=== PATIENT | female | born 1990 | race African-American/Black ===

== ENCOUNTER 2019-08-31 09:53 | Emergency (ER) | payer OTHER ==
[~2019-08-31] VITALS: Ht 162.6 cm; Wt 117.9 kg
[~2019-08-31 09:53] MED LIST: APAP500 PO
[2019-08-31] MEDS ORDERED: KEFLEX500 M1 PO (11:30)
[2019-08-31 11:43] VITALS: BP 132/71
== END 2019-08-31 11:44 | disposition home or self-care (01) ==
LOC: ER 09:53
DX: S31.139A Puncture wound of abdominal wall without foreign body, unspecified quadrant without penetration into peritoneal cavity, initial encounter (principal); G43.909 Migraine, unspecified, not intractable, without status migrainosus; W27.8XXA Contact with other nonpowered hand tool, initial encounter; Y93.89 Activity, other specified; Y92.89 Other specified places as the place of occurrence of the external cause; Y99.8 Other external cause status

== ENCOUNTER 2019-11-25 19:19 | Emergency (ER) | payer OTHER ==
[~2019-11-25] VITALS: Ht 162.6 cm; Wt 76.7 kg
[~2019-11-25 19:19] MED LIST changes: +KEFLEX500 M1 PO
[2019-11-25] MEDS ORDERED: MOBIC15 MG PO (21:11)
[2019-11-25 21:21] VITALS: BP 134/68
== END 2019-11-25 21:20 | disposition home or self-care (01) ==
LOC: ER 19:19
DX: S00.03XA Contusion of scalp, initial encounter (principal); R07.81 Pleurodynia; R07.89 Other chest pain; R42 Dizziness and giddiness; G43.909 Migraine, unspecified, not intractable, without status migrainosus; Y08.89XA Assault by other specified means, initial encounter; Y93.89 Activity, other specified; Y92.89 Other specified places as the place of occurrence of the external cause; Y99.8 Other external cause status

== ENCOUNTER 2021-04-07 | Emergency (ER) | payer OTHER ==
[~2021-04-07] VITALS: Ht 162.6 cm; Wt 122.5 kg
[~2021-04-07] MED LIST changes: +MOBIC15 MG PO
[2021-04-07 01:00] LABS: URINE BILIRUBIN NEGATIVE (Negative); URINE BLOOD 3+ (Negative); URINE CLARITY CLEAR; URINE COLOR YELLOW; URINE GLUCOSE-RANDOM* NEGATIVE (Negative); URINE KETONES NEGATIVE (Negative); URINE PROTEIN (DIPSTICK) NEGATIVE (Negative)
[2021-04-07 01:01] LABS: URINE LEUKOCYTES-REFLEX 1+ (Negative); URINE NITRITE-REFLEX POSITIVE (Negative)
[2021-04-07 01:16] LABS: BACTERIA-REFLEX >30 Many /HPF (None Seen); CASTS None Seen /LPF (None Seen); CRYSTALS None Seen /LPF (None Seen); MUCUS 0-3 Light strn/LPF (None Seen); SQUAMOUS 0-3 Few /LPF (0-3); URINE RBC 3-10 Few /HPF (NONE SEEN); URINE WBC-REFLEX 0-5 Rare /HPF (0-5)
[2021-04-07] MEDS ORDERED: KEFLEX250 MG PO (01:17)
[2021-04-07 02:26] VITALS: BP 124/71
== END 2021-04-07 02:27 | disposition home or self-care (01) ==
LOC: ER
PROVIDERS: Emergency Medicine
DX: N39.0 Urinary tract infection, site not specified (principal); Z20.822 Contact with and (suspected) exposure to COVID-19